=== PATIENT | male | born 2000 | race Caucasian/White ===

== ENCOUNTER 2025-02-12 05:44 | Emergency (ER) | payer OTHER ==
[2025-02-12 06:05] VITALS: RESP 18; TEMP 98.3
--- NOTE | 2025-02-12 06:27 | ERPHSYRPT ---
- History of Present Illness Time Seen by Provider: 02/12/25 06:22 Source: patient Patient Subjective Stated Complaint: c/o left sided upper abdominal pain Triage Nursing Assessment: Patient brought to ED by partner with c/o left sided abdominal pain. rates pain 8/10, Patient states that this issue started in September and hasn't gone away. pt has scope schedule for February 19, has had blood in stool, gait steady, vitals wnl, N/V/D, bowel sounds present in all 4 quads, denies tenderness with palpation Physician History: 24-year-old male presents to our ED for evaluation of left lower rib pain. RN documents left sided abdominal pain however this is not accurate. The pain is up in the rib area. Patient rates his pain 8 out of 10. He appears comfortable conversant he does not appear to be in any distress. Patient states his pain has been ongoing since September 2024, 4 months. Patient adds that he has observed blood in his stool but his primary care doctor is currently scheduling a upper and lower endoscopy study. Patient otherwise feels well. No systemic manifestations. No fever. No nausea vomiting diarrhea or rash. Patient otherwise feels well. Significant other at bedside. They voiced no other complaints or concerns at this time. Portions of this note were created with voice recognition technology. There may be grammatical, spelling, punctuation or sound alike errors Timing/Duration: other (4 months) Severity: moderate Modifying Factors: Improves With: nothing Associated Symptoms: denies symptoms Allergies/Adverse Reactions: No Known Drug Allergies Allergy (Verified 02/12/25 05:51) Home Medications: No Reportable Medications [No Reported Medications] 02/12/25 [History] Hx Tetanus, Diphtheria Vaccination/Date Given: No Hx Influenza Vaccination/Date Given: No Hx Pneumococcal Vaccination/Date Given: No Travel Risk - International Travel Have you traveled outside of the country in past 3 weeks: No - Emerging Infectious Disease Are you exhibiting symptoms associated with any current EIDs: No - Review of Systems Constitutional: No Symptoms, No Fever, No Chills Eyes: No Symptoms Ears, Nose, & Throat: No Symptoms Respiratory: No Symptoms, No Cough, No Dyspnea Cardiac: No Symptoms, No Chest Pain, No Edema, No Syncope Abdominal/Gastrointestinal: No Symptoms, No Abdominal Pain, No Nausea, No Vo miting, No Diarrhea Genitourinary Symptoms: No Symptoms, No Dysuria Musculoskeletal: No Symptoms, No Back Pain, No Neck Pain Skin: No Symptoms, No Rash Neurological: No Symptoms, No Dizziness, No Focal Weakness, No Sensory Changes Psychological: No Symptoms Endocrine: No Symptoms Hematologic/Lymphatic: No Symptoms Immunological/Allergic: No Symptoms All Other Systems: Reviewed and Negative - Past Medical History Pertinent Past Medical History: Yes Musculoskeletal History: Fractures Other Medical History: broke nose in 2002 - Past Surgical History Past Surgical History: No - Social History Smoking Status: Never smoker Exposure to second hand smoke: No Drug Use: none - Social Determinants of Health Will the patient participate in the screening: Yes Do you worry about a steady place to live?: No Do you have any problems with any of the following?: No known problems In the past 12 months,have you had to go without utilities?: No Transportation Issues: No Has anyone in your support network made you feel unsafe?: No Have you or anyone in your house had to go w/o enough food: No - Nursing Vital Signs Nursing Vital Signs: Initial Vital Signs Temperature 98.3 F 02/12/25 05:53 Pulse Rate 50 L 02/12/25 05:53 Respiratory Rate 18 02/12/25 05:53 Blood Pressure 118/74 02/12/25 05:53 O2 Sat by Pulse Oximetry 100 02/12/25 05:53 Pain Scale Pain Intensity 8 - Physical Exam General Appearance: no apparent distress, alert Eye Exam: PERRL/EOMI, eyes nml inspection Ears, Nose, Throat Exam: normal ENT inspection, pharynx normal, moist mucous membranes Neck Exam: normal inspection, non-tender, supple, full range of motion Respiratory Exam: normal breath sounds, lungs clear, airway intact, No respiratory distress Cardiovascular Exam: regular rate/rhythm, normal heart sounds, normal peripheral pulses Gastrointestinal/Abdomen Exam: soft, normal bowel sounds, No tenderness, No mass Back Exam: normal inspection, normal range of motion, No CVA tenderness, No vertebral tenderness Extremity Exam: normal inspection, normal range of motion, pelvis stable Neurologic Exam: alert, oriented x 3, cooperative, normal mood/affect, sensation nml, No motor deficits Skin Exam: normal color, warm, dry, No rash Lymphatic Exam: No adenopathy SpO2 Interpretation: normal SpO2: 100 O2 Delivery: Room Air - Course Nursing assessment & vital signs reviewed: Yes - Progress Progress: improved Progress Note: 24-year-old male presents to our ED for evaluation of pain to the left lower rib area that has been ongoing for 4 months. Patient has had an x-ray which he reports was normal. Patient was also advised that his pain could be coming from his spleen. No trauma. Physical exam essentially nonremarkable. Patient rates his pain 8 out of 10. Tylenol administered. Patient appears comfortable. CT scan of chest ordered. Results pending. Is currently the change of shift. Patient endorsed to incoming physician Dr. Bautista who will review the results of the CT scan to make final disposition. Portions of this note were created with voice recognition technology. There may be grammatical, spelling, punctuation or sound alike errors Complexity of problem addressed is moderate acute complicated. No critical care time. Complex of data reviewed analyzes moderate. Test ordered test reviewed results analyzed and correlated clinically with history and physical exam. Risk of complication and or risk of morbidity/mortality of patient management is low. Vital stable. Time spent to discharge patient is approximately 15 minutes. Plan of care established for shared decision making. No social determinants of health present to impede follow-up. Portions of this note were created with voice recognition technology. There may be grammatical, spelling, punctuation or sound alike errors 02/12/25 06:55 Counseled pt/family regarding: diagnosis, need for follow-up, rad results - Departure Departure Disposition: Home Clinical Impression: Rib pain on left side Condition: Stable Critical Care Time: No Additional Instructions: Discharge/Care Plan BARBRA HARDIN was seen on 02/12/25 in the Emergency Room. The patient was counseled regarding Diagnosis,Lab results, Imaging studies, need for follow up and when to return to the Emergency Room. Prescriptions given: Discharge Note I have spoken with the patient and/or caregivers. I have explained the patient's condition, diagnosis and treatment plan based on the information available to me at this time. I have answered the patient's and/or caregiver's questions and addressed any concerns. The patient and/or caregivers have as good understanding of the patient's diagnosis, condition and treatment plan as can be expected at this point. The vital signs have been stable. The patient's condition is stable and appropriate for discharge from the emergency department. The patient will pursue further outpatient evaluation with the primary care physician or other designated or consulting physician as outlined in the discharge instructions. The patient and/or caregivers are agreeable to this plan of care and follow-up instructions have been explained in detail. The patient and/or caregivers have received these instruction. The patient/and or caregivers are aware that any significant change in condition or worsening of symptoms should prompt an immediate return to this or the closest emergency department or call 911.
[2025-02-12] MEDS ORDERED: TYLENOL 325 MG ONE (06:29)
[2025-02-12] MEDS: TYLENOL 325 MG PO ONE (06:30)
--- NOTE | 2025-02-12 07:22 | XRAY ---
CLINICAL HISTORY: left rib pain COMPARISON: No TECHNIQUE: Contiguous axial images were obtained from the neck base through the upper abdomen without contrast. In addition, sagittal and coronal reconstructions were performed to potentially increase the sensitivity for the detection of disease. CT scan was performed according to ALARA (as low as reasonable achievable). FINDINGS: The lungs are clear, with no focal areas of consolidation. No pulmonary nodules are seen. The central airways are patent. There are no pleural effusions. No pneumothorax is seen. Evaluation of the mediastinum and stanislav is limited due to the lack of intravenous contrast. Calcified right hilar and right paratracheal lymph node. The thyroid is unremarkable. The heart, aorta, and pulmonary arteries are of normal size and configuration. There are no appreciable coronary artery and aortic atherosclerotic calcifications. No pericardial effusion is identified. Imaged portions of the upper abdomen are unremarkable. No aggressive appearing osseous lesions are identified. IMPRESSION: 1. Unremarkable study. Electronically Signed by: Michele Lassiter MD. (02/12/2025 07:18:06 EDT)
[2025-02-12 08:02] VITALS: BP 113/73; PULSE 52; O2SAT 98
== END 2025-02-12 08:18 | disposition home or self-care (01) ==
LOC: ED 05:44
DX: R07.81 Pleurodynia (principal)
CPT/HCPCS: 71250; 99284; A9270-GY